=== PATIENT | female | born 2000 | race Caucasian/White ===

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

== ENCOUNTER 2021-02-17 23:11 | Emergency (ER) | payer OTHER ==
[2021-02-17 23:24] VITALS: BP 128/82; PULSE 96; RESP 18; TEMP 98.5
[2021-02-17] MEDS ORDERED: IBUPROFEN 600 MG TAB PO STA (23:51)
[2021-02-17] MEDS ORDERED: ACETAMINOPHEN TAB 325 MG TAB PO STA (23:51)
--- NOTE | 2021-02-18 00:10 | XR ---
EXAMINATION TYPE: XR foot complete RT DATE OF EXAM: 02/18/2021 COMPARISON: NONE HISTORY: Hyperextension injury. Pain TECHNIQUE: 3 views FINDINGS: Metatarsals are intact. I see no fracture nor dislocation. Joint spaces are normal. IMPRESSION: Negative right foot exam.
--- NOTE | 2021-02-18 00:13 | XR ---
EXAMINATION TYPE: XR ankle complete RT DATE OF EXAM: 02/18/2021 COMPARISON: NONE HISTORY: Hyperextension injury. Pain TECHNIQUE: 3 views FINDINGS: Ankle mortise is anatomic. I see no fracture nor dislocation. Joint spaces are normal. IMPRESSION: Normal right ankle exam.
--- NOTE | 2021-02-18 00:16 | ED ---
General Adult HPI - General Chief complaint: Extremity Injury, Lower Stated complaint: Foot Pain/Injury Time Seen by Provider: 02/17/21 23:24 Source: patient Mode of arrival: ambulatory Limitations: no limitations - History of Present Illness Initial comments: 20-year-old female patient presents to the emergency department today for evaluation of right foot and ankle pain. Patient states that she was coming down the stairs and misstepped and stumbled down approximately two steps causing a hyperextension of the foot. Patient states initially she felt okay then started to have increased pain and swelling of the night continued. States she now has pain with ambulation. Denies numbness or tingling to the foot. Denies any knee pain. Denies falling, hitting her head, or any other injuries. Denies chance of . - Related Data Home Medications Medication Instructions Recorded Confirmed Pedi Multivit No.25/Folic Acid 2 tab PO DAILY 01/15/19 01/15/19 [[place] Multivit Chew Tab] Previous Rx's Medication Instructions Recorded Ibuprofen [Motrin] 600 mg PO Q6HR PRN #30 tab 01/17/19 Ibuprofen [Motrin] 600 mg PO Q8HR PRN #30 tab 02/18/21 Allergies Allergy/AdvReac Type Severity Reaction Status Date / Time hydrocodone [From [place]] AdvReac Intermediate Nausea & Verified 02/17/21 23:21 Vomiting morphine AdvReac Intermediate Nausea & Verified 02/17/21 23:21 Vomiting Review of Systems ROS Statement: Those systems with pertinent positive or pertinent negative responses have been documented in the HPI. ROS Other: All systems not noted in ROS Statement are negative. Past Medical History Past Medical History: No Reported History History of Any Multi-Drug Resistant Organisms: None Reported Past Surgical History: Appendectomy Past Anesthesia/Blood Transfusion Reactions: No Reported Reaction Past Psychological History: Anxiety Smoking Status: Never smoker Past Alcohol Use History: None Reported Past Drug Use History: None Reported, Marijuana - Past Family History Mother Additional Family Medical History / Comment(s): miscarriages General Exam Limitations: no limitations General appearance: alert, in no apparent distress, other (This is a well- developed, well-nourished adult female patient in no acute distress. Vital signs upon presentation are temperature 98.5F, pulse 96, respirations 18, blood pressure 128/82, pulse ox 98% on room air.) Respiratory exam: Present: normal lung sounds bilaterally. Absent: respiratory distress, wheezes, rales, rhonchi, stridor Cardiovascular Exam: Present: regular rate, normal rhythm, normal heart sounds. Absent: systolic murmur, diastolic murmur, rubs, gallop, clicks GI/Abdominal exam: Present: soft, normal bowel sounds. Absent: distended, tenderness, guarding, rebound, rigid Extremities exam: Present: full ROM, tenderness (Over the right lateral aspect of the foot, right lateral ankle. Skin is otherwise pink, warm, dry. Cap refill less than 3 seconds. Pedal and posttibial pulses 2+.), normal capillary refill. Absent: pedal edema, joint swelling, calf tenderness Neurological exam: Present: alert, oriented X3, CN II-XII intact Psychiatric exam: Present: normal affect, normal mood Skin exam: Present: warm, dry, intact, normal color. Absent: rash Course Vital Signs 02/17/21 23:21 Temperature 98.5 F Pulse Rate 96 Respiratory 18 Rate Blood Pressure 128/82 O2 Sat by Pulse 98 Oximetry Medical Decision Making - Medical Decision Making 20-year-old female patient presented to the emergency department today for evaluation of right ankle and foot pain after an injury. Physical examination did reveal soft tissue swelling over the right lateral aspect of the foot on the right lateral malleolus. Neurovascular status was intact. X-rays were obtained and were negative for any acute osseous abnormality. I did discuss findings and results with the patient. We did discuss sprain as a cause for her symptoms. Discussed possible ligamentous injury. She'll be discharged with orthopedics for further evaluation for symptoms are not improved over the next 7-10 days. She was placed in an Bandar wrap and ankle stirrup splint. She is instructed to take Tylenol Motrin for pain control. Educated regarding rest, ice, elevation. Return parameters were discussed in detail. She verbalizes understanding and agrees with this plan. My attending is Dr. Virk. - Radiology Data Radiology results: report reviewed, image reviewed 3 views of the right foot are obtained. Report was reviewed in its entirety. Impression by Dr. Randolph shows negative right foot exam. 3 views of the right ankle are obtained. Report reviewed in its entirety. Impression by Dr. Randolph shows normal right ankle exam. Disposition Clinical Impression: Sprain of left foot, Left ankle sprain Disposition: HOME SELF-CARE Condition: Good Instructions (If sedation given, give patient instructions): Ankle Sprain (ED), Foot Sprain (ED) Additional Instructions: Use bandar wrap for compression and support, use ankle splint for support. Take tylenol and motrin for pain control. Rest, ice, and elevate the foot. Follow up with orthopedics if symptoms are not improved over the next 7-10 days. Return for any new, worsening, or concerning symptoms. Prescriptions: Ibuprofen [Motrin] 600 mg PO Q8HR PRN #30 tab PRN Reason: Pain Is patient prescribed a controlled substance at d/c from ED?: No Referrals: Marcelo Corley DO [Doctor of Osteopathic Medicine] - 1-2 days Time of Disposition: 00:16
== END 2021-02-18 00:31 | disposition home or self-care (01) ==
LOC: EC 23:11
DX: S93.601A Unspecified sprain of right foot, initial encounter (principal); S93.401A Sprain of unspecified ligament of right ankle, initial encounter; Z88.5 Allergy status to narcotic agent; W10.9XXA Fall (on) (from) unspecified stairs and steps, initial encounter; X50.0XXA Overexertion from strenuous movement or load, initial encounter; Y92.009 Unspecified place in unspecified non-institutional (private) residence as the place of occurrence of the external cause
CPT/HCPCS: 29515; 99283

== ENCOUNTER → 2021-10-02 | Outpatient (CLI) | payer OTHER ==
--- NOTE | 2021-10-02 16:06 | US ---
EXAMINATION TYPE: Transabdominal DATE OF EXAM: 10/02/2021 3:14 PM COMPARISON: NONE CLINICAL HISTORY: Z36 confirm dates. Unknown LMP, with recent miscarriage G 3 P 1 EXAM PERFORMED: Transvaginal (TV) and Transabdominal (TA) EXAM MEASUREMENTS: GESTATIONAL AGE / DATING Dates by Current Scan for: (7 weeks/1 days) EDC: 05/20/2022 MATERNAL ANATOMY Uterus: 7.8 x 6.4 x 4.8 Right Ovary: 3.4 x 2.8 x 2.0 Left Ovary: 2.2 x 1.5 x 1.0cm Presence of free fluid: none Presence of corpus luteal cyst: Right side measuring 1.9 x 1.8 x 1.5cm Presence of subchorionic bleed: none GESTATION / SURVEY CRL: 1.0 (7 weeks/1 days) Yolk Sac (normal less than 6mm): 4mm Heart Rate: 148 bpm Rhythm: WNL IUP: Single IUP Date of LMP: Unknown Beta HcG (if available): Not available Single live IUP IMPRESSION: 1. Single intrauterine gestation estimated at 7 weeks 1 day gestation based on crown-rump length. Car diac activity measures 148 bpm.
== END | disposition home or self-care (01) ==
LOC: RADUSWWP 14:41
PROVIDERS: ATTEND Obstetrics & Gynecology
DX: Z36.0 Encounter for antenatal screening for chromosomal anomalies (principal)
CPT/HCPCS: 76801; 76817

== ENCOUNTER 2021-12-01 11:02 | Emergency (ER) | payer OTHER ==
[2021-12-01 11:14] VITALS: TEMP 98.1
[2021-12-01 11:25] LABS: Glucose,Whole Blood 87 mg/dL (75-99)
--- NOTE | 2021-12-01 11:37 | ED ---
Dizziness HPI - General Chief Complaint: Dizziness Stated Complaint: Low blood sugar, 16 weeks Preg Time Seen by Provider: 12/01/21 11:17 Source: patient, family, RN notes reviewed Mode of arrival: ambulatory Limitations: no limitations - History of Present Illness Initial Comments: This is a 21-year-old female who presents to the emergency department for dizziness. Patient is 16 weeks . She has a history of hypoglycemia, and states that it has been significantly worse since this started. 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 Her blood sugar was 82 at that time. She drank 2 glasses of orange juice, and her sugar went up to 93. States that she feels the best when her sugar is 120-140. She has been having trouble keeping her sugar up throughout this . She sees Dr. Vela, and her next appointment is tomorrow. She did have hyperemesis gravidarum with her previous , however she has not had any problems with this during this . MD Complaint: dizziness, lightheadedness Onset/Timin -: days(s) Description: lightheadedness History of Same: Yes History of Trauma: No - Related Data Home Medications Medication Instructions Recorded Confirmed Acetaminophen Tab [Tylenol] 650 - 775 mg PO Q6HR PRN 12/01/21 12/01/21 Allergies Allergy/AdvReac Type Severity Reaction Status Date / Time hydrocodone [From [place]] AdvReac Intermediate Nausea & Verified 12/01/21 11:45 Vomiting morphine AdvReac Intermediate Nausea & Verified 12/01/21 11:45 Vomiting Review of Systems ROS Statement: Those systems with pertinent positive or pertinent negative responses have been documented in the HPI. ROS Other: All systems not noted in ROS Statement are negative. Constitutional: Denies: fever, chills ENT: Denies: ear pain, throat pain Respiratory: Denies: cough, dyspnea Cardiovascular: Denies: chest pain, palpitations Gastrointestinal: Denies: abdominal pain, nausea, vomiting, diarrhea Genitourinary: Denies: urgency, dysuria Skin: Denies: rash Neurological: Reports: other (Dizziness) Past Medical History Past Medical History: No Reported History Additional Past Medical History / Comment(s): hypogylcemic History of Any Multi-Drug Resistant Organisms: None Reported Past Surgical History: Appendectomy Past Anesthesia/Blood Transfusion Reactions: No Reported Reaction Past Psychological History: Anxiety Smoking Status: Never smoker Past Alcohol Use History: None Reported Past Drug Use History: None Reported, Marijuana - Past Family History Mother Additional Family Medical History / Comment(s): miscarriages General Exam Limitations: no limitations General appearance: alert, in no apparent distress Head exam: Present: atraumatic, normocephalic, normal inspection ENT exam: Present: normal exam, mucous membranes moist, normal external ear exam Neck exam: Present: normal inspection. Absent: tenderness, meningismus, lymphadenopathy Respiratory exam: Present: normal lung sounds bilaterally. Absent: respiratory distress, wheezes, rales, rhonchi, stridor Cardiovascular Exam: Present: regular rate, normal rhythm, normal heart sounds. Absent: systolic murmur, diastolic murmur, rubs, gallop, clicks Neurological exam: Present: alert, oriented X3, CN II-XII intact Psychiatric exam: Present: normal affect, normal mood Skin exam: Present: warm, dry, intact, normal color. Absent: rash Course Vital Signs 12/01/21 12/01/21 11:10 17:10 Temperature 98.1 F Pulse Rate 93 81 Respiratory 18 16 Rate Blood Pressure 116/81 112/74 O2 Sat by Pulse 100 100 Oximetry Medical Decision Making - Medical Decision Making This is a 21-year-old female who presents to the emergency department with dizziness. She has a glucose of 87. Patient given a sandwich and Jell-O in the emergency department. Lab work revealed an elevated white count, as suspected in . After the point of care glucose of 87, she had lab work done, revealing a glucose level of 79. The patient is not technically in the range of what is considered hypoglycemia, however she is very symptomatic. She was given a sandwich and Jell-O, and her glucose following the meal was 91. Patient is very concerned with this and requests more of a workup. TSH was within normal limits. Insulin level, proinsulin, and C-peptide ordered to evaluate for e levated insulin production. Lab work will be sent out and results will not be available today. Ultrasound obtained of the LUQ as opposed to the RUQ due to miscommunication between myself and ultrasound. After discussion with radiology, ultrasound, and myself, it was decided that it would be best to cancel this, as an insulinoma would be very hard to visualize on the ultrasound. Will plan to avoid further imaging at this time and wait for the results of the lab work, which she can discuss on follow up with her PCP. Patient is in agreement with this plan. Encouraged patient to continue with small, frequent meals throughout the day, aiming for foods that are high in protein as opposed to carbohydrates. Return precautions reviewed in depth, the patient is instructed to return to the emergency department with any new, worsening, or concerning symptoms. Patient verbalized understanding. This case was discussed in detail with the attending ED physician. Presentation, findings, and treatment plan discussed in detail as well. - Lab Data Result diagrams: 12/01/21 12:02 12/01/21 12:02 Lab Results 12/01/21 12/01/21 12/01/21 Range/Units 11:24 11:52 12:02 WBC 13.4 H (3.8-10.6) k/uL RBC 4.26 (3.80-5.40) m/uL Hgb 13.7 (11.4-16.0) gm/dL Hct 41.2 (34.0-46.0) % MCV 96.6 (80.0-100.0) fL MCH 32.2 (25.0-35.0) pg MCHC 33.3 (31.0-37.0) g/dL RDW 12.1 (11.5-15.5) % Plt Count 376 (150-450) k/uL MPV 7.1 Neutrophils % 86 % Lymphocytes % 10 % Monocytes % 3 % Eosinophils % 1 % Basophils % 0 % Neutrophils # 11.5 H (1.3-7.7) k/uL Lymphocytes # 1.3 (1.0-4.8) k/uL Monocytes # 0.4 (0-1.0) k/uL Eosinophils # 0.1 (0-0.7) k/uL Basophils # 0.0 (0-0.2) k/uL Sodium (137-145) mmol/L Potassium (3.5-5.1) mmol/L Chloride (98-107) mmol/L Carbon Dioxide (22-30) mmol/L Anion Gap mmol/L BUN (7-17) mg/dL Creatinine (0.52-1.04) mg/dL Est GFR (CKD-EPI)AfAm (>60 ml/min/1.73 sqM) Est GFR (CKD-EPI)NonAf (>60 ml/min/1.73 sqM) Glucose (74-99) mg/dL POC Glucose (mg/dL) 87 (75-99) mg/dL POC Glu Stick Inserter ID Tanvi Martines Calcium (8.4-10.2) mg/dL Total Bilirubin (0.2-1.3) mg/dL AST (14-36) U/L ALT (4-34) U/L Alkaline Phosphatase (38-126) U/L Total Protein (6.3-8.2) g/dL Albumin (3.5-5.0) g/dL TSH (0.465-4.680) mIU/L Urine Color Light Yellow Urine Appearance Cloudy H (Clear) Urine pH 5.5 (5.0-8.0) Ur Specific Od[place] 1.010 (1.001-1.035) Urine Protein Negative (Negative) Urine Glucose (UA) Negative (Negative) Urine Ketones Negative (Negative) Urine Blood Negative (Negative) Urine Nitrite Negative (Negative) Urine Bilirubin Negative (Negative) Urine Urobilinogen <2.0 (<2.0) mg/dL Ur Leukocyte Esterase Large H (Negative) Urine RBC 3 (0-5) /hpf Urine WBC 12 H (0-5) /hpf Ur Squamous Epith Cells 4 (0-4) /hpf Urine Bacteria Occasional H (None) /hpf Urine Mucus Occasional H (None) /hpf 12/01/21 12/01/21 12/01/21 Range/Units 12:02 15:54 16:33 WBC (3.8-10.6) k/uL RBC (3.80-5.40) m/uL Hgb (11.4-16.0) gm/dL Hct (34.0-46.0) % MCV (80.0-100.0) fL MCH (25.0-35.0) pg MCHC (31.0-37.0) g/dL RDW (11.5-15.5) % Plt Count (150-450) k/uL MPV Neutrophils % % Lymphocytes % % Monocytes % % Eosinophils % % Basophils % % Neutrophils # (1.3-7.7) k/uL Lymphocytes # (1.0-4.8) k/uL Monocytes # (0-1.0) k/uL Eosinophils # (0-0.7) k/uL Basophils # (0-0.2) k/uL Sodium 133 L (137-145) mmol/L Potassium 4.4 (3.5-5.1) mmol/L Chloride 103 (98-107) mmol/L Carbon Dioxide 25 (22-30) mmol/L Anion Gap 5 mmol/L BUN 9 (7-17) mg/dL Creatinine 0.51 L (0.52-1.04) mg/dL Est GFR (CKD-EPI)AfAm >90 (>60 ml/min/1.73 sqM) Est GFR (CKD-EPI)NonAf >90 (>60 ml/min/1.73 sqM) Glucose 79 (74-99) mg/dL POC Glucose (mg/dL) 91 77 (75-99) mg/dL POC Glu Stick Inserter ID Belval, Tanvi Belval, Tanvi Calcium 9.4 (8.4-10.2) mg/dL Total Bilirubin 0.3 (0.2-1.3) mg/dL AST 18 (14-36) U/L ALT 9 (4-34) U/L Alkaline Phosphatase 42 (38-126) U/L Total Protein 7.2 (6.3-8.2) g/dL Albumin 4.0 (3.5-5.0) g/dL TSH 1.630 (0.465-4.680) mIU/L Urine Color Urine Appearance (Clear) Urine pH (5.0-8.0) Ur Specific [place] (1.001-1.035) Urine Protein (Negative) Urine Glucose (UA) (Negative) Urine Ketones (Negative) Urine Blood (Negative) Urine Nitrite (Negative) Urine Bilirubin (Negative) Urine Urobilinogen (<2.0) mg/dL Ur Leukocyte Esterase (Negative) Urine RBC (0-5) /hpf Urine WBC (0-5) /hpf Ur Squamous Epith Cells (0-4) /hpf Urine Bacteria (None) /hpf Urine Mucus (None) /hpf 12/01/21 Range/Units 17:26 WBC (3.8-10.6) k/uL RBC (3.80-5.40) m/uL Hgb (11.4-16.0) gm/dL Hct (34.0-46.0) % MCV (80.0-100.0) fL MCH (25.0-35.0) pg MCHC (31.0-37.0) g/dL RDW (11.5-15.5) % Plt Count (150-450) k/uL MPV Neutrophils % % Lymphocytes % % Monocytes % % Eosinophils % % Basophils % % Neutrophils # (1.3-7.7) k/uL Lymphocytes # (1.0-4.8) k/uL Monocytes # (0-1.0) k/uL Eosinophils # (0-0.7) k/uL Basophils # (0-0.2) k/uL Sodium (137-145) mmol/L Potassium (3.5-5.1) mmol/L Chloride (98-107) mmol/L Carbon Dioxide (22-30) mmol/L Anion Gap mmol/L BUN (7-17) mg/dL Creatinine (0.52-1.04) mg/dL Est GFR (CKD-EPI)AfAm (>60 ml/min/1.73 sqM) Est GFR (CKD-EPI)NonAf (>60 ml/min/1.73 sqM) Glucose (74-99) mg/dL POC Glucose (mg/dL) 129 H (75-99) mg/dL POC Glu Stick Inserter ID Bobbi, Tanvi Calcium (8.4-10.2) mg/dL Total Bilirubin (0.2-1.3) mg/dL AST (14-36) U/L ALT (4-34) U/L Alkaline Phosphatase (38-126) U/L Total Protein (6.3-8.2) g/dL Albumin (3.5-5.0) g/dL TSH (0.465-4.680) mIU/L Urine Color Urine Appearance (Clear) Urine pH (5.0-8.0) Ur Specific [place] (1.001-1.035) Urine Protein (Negative) Urine Glucose (UA) (Negative) Urine Ketones (Negative) Urine Blood (Negative) Urine Nitrite (Negative) Urine Bilirubin (Negative) Urine Urobilinogen (<2.0) mg/dL Ur Leukocyte Esterase (Negative) Urine RBC (0-5) /hpf Urine WBC (0-5) /hpf Ur Squamous Epith Cells (0-4) /hpf Urine Bacteria (None) /hpf Urine Mucus (None) /hpf - Radiology Data Radiology results: report reviewed, image reviewed Disposition Clinical Impression: Dehydration, Lightheadedness Disposition: HOME SELF-CARE Instructions (If sedation given, give patient instructions): Non-diabetic Hypoglycemia (ED), Dizziness (ED) Additional Instructions: Return to the emergency department with any new, worsening, or concerning symptoms. Continue to eat frequently throughout the day, slowly increase the amount you eat as needed to avoid episodes of hypoglycemia. Eat more protein and limit carbohydrate consumption. Follow up with your theater technician as scheduled to discuss symptoms. Follow up with your primary care provider in 1-2 days. Follow up on the rest of blood work regarding the insulin levels with your primary care provider. Is patient prescribed a controlled substance at d/c from ED?: No Referrals: None,Stated [Primary Care Provider] - 1-2 days
[2021-12-01 12:17] LABS: Basophils % (A) 0 %; Eosinophils # (A) 0.1 k/uL (0-0.7); Eosinophils % (A) 1 %; HCT 41.2 % (34.0-46.0); HGB 13.7 gm/dL (11.4-16.0); Lymphocytes # (A) 1.3 k/uL (1.0-4.8); Lymphocytes % (A) 10 %; MCH 32.2 pg (25.0-35.0); MCHC 33.3 g/dL (31.0-37.0); MCV 96.6 fL (80.0-100.0); Mean Platelet Volume 7.1; Monocytes # (A) 0.4 k/uL (0-1.0); Monocytes % (A) 3 %; Neutrophils # (A) 11.5 k/uL (1.3-7.7); Neutrophils % (A) 86 %; Platelet Count 376 k/uL (150-450); RBC 4.26 m/uL (3.80-5.40); RDW 12.1 % (11.5-15.5); WBC 13.4 k/uL (3.8-10.6)
[2021-12-01 12:32] LABS: ALT 9 U/L (4-34); AST 18 U/L (14-36); African American GFR (CKD) >90 (>60 ml/min/1.73 sqM); Alkaline Phosphatase 42 U/L (38-126); Anion Gap 5 mmol/L; Blood Urea Nitrogen 9 mg/dL (7-17); Calcium 9.4 mg/dL (8.4-10.2); Carbon Dioxide 25 mmol/L (22-30); Chloride 103 mmol/L (98-107); Glucose 79 mg/dL (74-99); Non-African American GFR(CKD) >90 (>60 ml/min/1.73 sqM); Potassium 4.4 mmol/L (3.5-5.1); Sodium 133 mmol/L (137-145); Total Bilirubin 0.3 mg/dL (0.2-1.3); Total Protein 7.2 g/dL (6.3-8.2)
[2021-12-01 12:34] LABS: Appearance,Urine Cloudy (Clear); Bacteria,Urine Occasional /hpf; Bilirubin,Urine Negative (Negative); Blood,Urine Negative (Negative); Color,Urine Light Yellow; Glucose,Urine (UA) Negative (Negative); Ketones,Urine Negative (Negative); Leukocyte Esterase,Urine Large (Negative); Mucus,Urine Occasional /hpf; Nitrite,Urine Negative (Negative); PH, Urine 5.5 (5.0-8.0); Protein,Urine Negative (Negative); RBC,Urine 3 /hpf (0-5); Squamous Epithelial Cell,Urine 4 /hpf (0-4); Urobilinogen,Urine <2.0 mg/dL (<2.0); WBC,Urine 12 /hpf (0-5)
--- NOTE | 2021-12-01 14:44 | US ---
EXAMINATION TYPE: US abdomen limited DATE OF EXAM: 12/01/2021 COMPARISON: NONE CLINICAL HISTORY: Hypoglycemia, dizziness. EXAM MEASUREMENTS: Spleen: 9.9 cm Left Kidney: 10.8 x 4.8 x 4.8 cm 1. Spleen: wnl 2. Left Kidney: wnl There is no evident ascites. No hydronephrosis or nephrolithiasis. IMPRESSION: No abnormality evident to account for patient's symptoms, limited exam
[2021-12-01 15:56] LABS: Glucose,Whole Blood 91 mg/dL (75-99)
[2021-12-01 16:36] LABS: Glucose,Whole Blood 77 mg/dL (75-99)
[2021-12-01 17:12] VITALS: BP 112/74; PULSE 81; RESP 16
[2021-12-01 17:28] LABS: Glucose,Whole Blood 129 mg/dL (75-99)
== END 2021-12-01 17:30 | disposition home or self-care (01) ==
LOC: EC 11:02
DX: O99.282 Endocrine, nutritional and metabolic diseases complicating pregnancy, second trimester (principal); O26.812 Pregnancy related exhaustion and fatigue, second trimester; Z88.8 Allergy status to other drugs, medicaments and biological substances; Z88.6 Allergy status to analgesic agent; Z3A.16 16 weeks gestation of pregnancy
CPT/HCPCS: 36415; 76705; 80053; 81001; 83525; 84206; 84443; 84681; 85025; 87086; 99284

== ENCOUNTER 2022-04-16 16:20 | Outpatient (CLI) | payer OTHER ==
[2022-04-16 17:24] VITALS: BP 129/81; PULSE 98; RESP 16; TEMP 97.3
--- NOTE | 2022-04-17 06:11 | P.MSEPDOC ---
Presenting Problems - Arrival Data Date of Arrival on Unit: 04/16/22 Time of Arrival on Unit: 16:20 Mode of Transport: Ambulatory - Complaint OB-Reason for Admission/Chief Complaint: Rule Out PROM Comment: pt states she thinks she has been leaking fluid since 1500 yesterday, cat I fhts with occasional contractions noted, amnisure negative Medical History - Information : 3 Para: 1 Term: 1 : 0 Abortions: Spontaneous or Elective: 1 Number of Living Children: 1 - Gestational Age Gestational Age by MONICA (wks/days): 35 Weeks and 4 Days Review of Systems - Review of Systems Constitutional: No problems Breast: No problems ENT: No problems Cardiovascular: No problems Respiratory: No problems Gastrointestinal: No problems Genitourinary: No problems Musculoskeletal: No problems Neurological: No problems Skin: No problems Vital Signs - Temperature Temperature: 97.3 F Temperature Source: Temporal Artery Scan - Pulse Right Brachial Pulse Rate: 98 Pulse Assessment Method: Automatic Cuff - Respirations Respiratory Rate: 16 Oxygen Delivery Method: Room Air O2 Sat by Pulse Oximetry: 97 - Blood Pressure Right Arm Blood Pressure: 129/81 Blood Pressure Mean: 97 Blood Pressure Source: Automatic Cuff Medical Screen Scoring - Cervical Exam Dilation (cm): 0.5 Effacement (%): 50 Station: -2 Membranes: Intact - Uterine Contractions Intensity: Mild Resting: Soft to palpation - Assessment - Baby A Baseline FHR: 130 Heart Rate - NICHD Category: Category I (Normal) Physician Notification - Physician Notified Physician Notified Date: 04/16/22 Physician Notified Time: 17:07 Physician: Justo Cotton Maternal Triage Index - Prompt/Priority 3 Prompt Priority 3: Yes Criteria Met for Priority 3: amnisure result negative Disposition - Disposition OB Disposition: Discharge to home, Written follow up instructions reviewed Discharge Date: 04/16/22 Discharge Time: 17:20 I agree with the RN Medical Screening Exam: Yes Case reviewed; plan agreed upon as documented in EMR&OBIX.: Yes Diagnosis: FALSE LABOR BEFORE 37 COMPLETED WEEKS OF GEST, THIRD TRI
== END 2022-04-16 17:20 | disposition home or self-care (01) ==
LOC: FBPOP 16:20
PROVIDERS: ATTEND Obstetrics & Gynecology
DX: O47.03 False labor before 37 completed weeks of gestation, third trimester (principal); Z3A.35 35 weeks gestation of pregnancy
CPT/HCPCS: 59025; 84112; G0463; 99213

== ENCOUNTER 2022-05-05 13:05 | Outpatient (CLI) | payer OTHER ==
[2022-05-05 15:25] VITALS: BP 124/84; PULSE 97; RESP 16; TEMP 96.9
--- NOTE | 2022-05-07 07:50 | P.MSEPDOC ---
Presenting Problems - Arrival Data Date of Arrival on Unit: 05/05/22 Time of Arrival on Unit: 13:05 Mode of Transport: Ambulatory - Complaint OB-Reason for Admission/Chief Complaint: Possible Onset of Labor Medical History - Information : 2 Para: 1 Term: 1 : 0 Abortions: Spontaneous or Elective: 0 Number of Living Children: 1 - Gestational Age Gestational Age by MONICA (wks/days): 38 Weeks and 2 Days Review of Systems - Review of Systems Constitutional: No problems Breast: No problems ENT: No problems Cardiovascular: No problems Respiratory: No problems Gastrointestinal: No problems Genitourinary: No problems Musculoskeletal: No problems Neurological: No problems Skin: No problems Vital Signs - Temperature Temperature: 96.9 F Temperature Source: Temporal Artery Scan - Pulse Right Sitting Pulse Rate: 97 Pulse Assessment Method: Automatic Cuff - Respirations Respiratory Rate: 16 Oxygen Delivery Method: Room Air - Blood Pressure Right Arm Blood Pressure: 124/84 Blood Pressure Mean: 97 Blood Pressure Source: Automatic Cuff Medical Screen Scoring - Cervical Exam Dilation (cm): 2.5 Effacement (%): 80 Station: -2 Membranes: Intact - Uterine Contractions Frequency From (mins): 4 Frequency To (mins): 6 Duration From (seconds): 60 Duration To (seconds): 120 Intensity: Mild Resting: Soft to palpation - Assessment - Baby A Baseline FHR: 125 Heart Rate - NICHD Category: Category I (Normal) NST: Reactive Physician Notification - Physician Notified Physician Notified Date: 05/05/22 Physician Notified Time: 15:12 Physician: Malina Vela New Order Received: Yes (d/c home) Maternal Triage Index - Non-Urgent/Priority 4 Non-Urgent Priority 4: Yes Criteria Met for Priority 4: reactive nst, contractions every 4-6 minutes, vag exam no change Disposition - Disposition OB Disposition: Discharge to home Discharge Date: 05/05/22 Discharge Time: 15:18 I agree with the RN Medical Screening Exam: Yes Case reviewed; plan agreed upon as documented in EMR&OBIX.: Yes Diagnosis: FALSE LABOR AT OR AFTER 37 COMPLETED WEEKS OF GESTATION
== END 2022-05-05 15:18 | disposition home or self-care (01) ==
LOC: FBPOP 13:05
PROVIDERS: ATTEND Obstetrics & Gynecology
DX: O47.1 False labor at or after 37 completed weeks of gestation (principal); Z3A.38 38 weeks gestation of pregnancy
CPT/HCPCS: 59025; G0463; 99213

== ENCOUNTER 2022-05-06 11:47 | Outpatient (CLI) | payer OTHER ==
[2022-05-06 13:19] VITALS: BP 123/81; PULSE 93; RESP 16; TEMP 96.6
--- NOTE | 2022-05-07 07:51 | P.MSEPDOC ---
Presenting Problems - Arrival Data Date of Arrival on Unit: 05/06/22 Time of Arrival on Unit: 11:47 Mode of Transport: Ambulatory - Complaint OB-Reason for Admission/Chief Complaint: Possible Onset of Labor Medical History - Information : 2 Para: 1 Term: 1 : 0 Abortions: Spontaneous or Elective: 0 Number of Living Children: 1 - Gestational Age Gestational Age by MONICA (wks/days): 38 Weeks and 3 Days Review of Systems - Review of Systems Constitutional: No problems Breast: No problems ENT: No problems Cardiovascular: No problems Respiratory: No problems Gastrointestinal: No problems Genitourinary: No problems Musculoskeletal: No problems Neurological: No problems Skin: No problems Vital Signs - Temperature Temperature: 96.6 F Temperature Source: Temporal Artery Scan - Pulse Right Sitting Pulse Rate: 93 Pulse Assessment Method: Automatic Cuff - Respirations Respiratory Rate: 16 Oxygen Delivery Method: Room Air - Blood Pressure Right Arm Blood Pressure: 123/81 Blood Pressure Mean: 95 Blood Pressure Source: Automatic Cuff Medical Screen Scoring - Cervical Exam Dilation (cm): 3 Effacement (%): 80 Station: -2 Membranes: Intact - Uterine Contractions Frequency From (mins): 12 Frequency To (mins): 15 Intensity: Mild Resting: Soft to palpation - Assessment - Baby A Baseline FHR: 140 Heart Rate - NICHD Category: Category I (Normal) NST: Reactive Physician Notification - Physician Notified Physician Notified Date: 05/06/22 Physician Notified Time: 12:14 Physician: Neema Cain Order Received: Yes (d/c home) Maternal Triage Index - Non-Urgent/Priority 4 Non-Urgent Priority 4: Yes Criteria Met for Priority 4: contractions every 12-15 minutes, reactive nst, no change in cervix after 1 hour Disposition - Disposition OB Disposition: Discharge to home Discharge Date: 05/06/22 Discharge Time: 13:10 I agree with the RN Medical Screening Exam: Yes Case reviewed; plan agreed upon as documented in EMR&OBIX.: Yes Diagnosis: PRIMARY INADEQUATE CONTRACTIONS
== END 2022-05-06 13:10 | disposition home or self-care (01) ==
LOC: FBPOP 11:47
PROVIDERS: ATTEND Obstetrics & Gynecology
DX: O47.1 False labor at or after 37 completed weeks of gestation (principal); Z3A.38 38 weeks gestation of pregnancy
CPT/HCPCS: 59025; G0463; 99213

== ENCOUNTER 2022-05-07 00:12 | Inpatient (IN) | payer OTHER ==
[2022-05-07] MEDS ORDERED: LIDOCAINE 0.5% (PF) 5 MG/ML (50 ML SDV) SQ PRN (00:40)
[2022-05-07] MEDS ORDERED: TERBUTALINE 1 MG/ML VIAL SQ PRN (00:40)
[2022-05-07] MEDS ORDERED: METHYLERGONOVINE 0.2 MG/ML 1 ML AMP IM PRN (00:40)
[2022-05-07] MEDS ORDERED: OXYTOCIN 10 UNIT/ML 1 ML VIAL IM PRN (00:40)
[2022-05-07] MEDS ORDERED: CARBOPROST TROMETHAMINE 250 MCG/ML 1 ML AMP IM PRN (00:40)
[2022-05-07 01:00] LABS: Basophils # (A) 0.1 k/uL (0-0.2); Basophils % (A) 0 %; Eosinophils # (A) 0.1 k/uL (0-0.7); Eosinophils % (A) 1 %; HCT 39.8 % (34.0-46.0); HGB 12.9 gm/dL (11.4-16.0); Lymphocytes # (A) 2.5 k/uL (1.0-4.8); Lymphocytes % (A) 14 %; MCH 29.9 pg (25.0-35.0); MCHC 32.5 g/dL (31.0-37.0); MCV 92.1 fL (80.0-100.0); Mean Platelet Volume 8.1; Monocytes # (A) 0.8 k/uL (0-1.0); Monocytes % (A) 4 %; Neutrophils # (A) 13.6 k/uL (1.3-7.7); Neutrophils % (A) 78 %; Platelet Count 334 k/uL (150-450); RBC 4.32 m/uL (3.80-5.40); RDW 13.8 % (11.5-15.5); WBC 17.4 k/uL (3.8-10.6)
[2022-05-07] MEDS ORDERED: SODIUM CHLORIDE 0.9% 100 ML BAG ONE (01:05)
[2022-05-07] MEDS ORDERED: fentaNYL (PF) 50 MCG/ML 5 ML AMP ONE (01:05)
[2022-05-07] MEDS ORDERED: BUPIVACAINE (PF) 0.25% 30 ML VIAL ONE (01:05)
[2022-05-07] MEDS: LACTATED RINGERS 1,000 ML IV SCH ×2 (01:13→01:14)
--- NOTE | 2022-05-07 01:34 | P.HPOB ---
History of Present Illness H&P Date: 05/07/22 Chief Complaint: Contractions This is a 21-year-old female 3 para 1 with confinement of 05/17/2022, estimated gestational age of 38-4/7 weeks, who presents to labor and delivery with complaints of contractions that began a couple days ago that have become stronger since approximately 8 PM last night. She denies any rupture of membranes. course has been uncomplicated and has been with Dr. Vela. labs: Group B streptococcus-negative One hour Glucola-138, three-hour Glucola-within normal limits Hepatitis B surface antigen-negative RPR-nonreactive Rubella-immune Blood type-A- Antibody screen--positive for anti-D but RhoGAM was given prior to that HIV-nonreactive Hemoglobin-13.7 Random glucose-71 Pap [id number] squamous intraepithelial lesion GC/gonorrhea/Trichomonas-negative Obstetrical history: . History of 1 vaginal delivery at 37 weeks with no complications. History of 1 miscarriage. Gynecologic history: No history of sexual transmitted diseases Social history: She is single and engaged. She works as an aide at [employer]. Review of Systems Constitutional: Denies chills, Denies fever Eyes: denies blurred vision, denies pain Ears, nose, mouth and throat: Denies headache, Denies sore throat Cardiovascular: Denies chest pain, Denies shortness of breath Respiratory: Denies cough Gastrointestinal: Reports abdominal pain (Contractions) Genitourinary: Reports pelvic pain, Reports Musculoskeletal: Reports low back pain Integumentary: Denies pruritus, Denies rash Neurological: Denies numbness, Denies weakness Psychiatric: Reports anxiety, Denies depression Past Medical History Past Medical History: No Reported History Additional Past Medical History / Comment(s): hypogylcemic History of Any Multi-Drug Resistant Organisms: None Reported Past Surgical History: Appendectomy Past Anesthesia/Blood Transfusion Reactions: No Reported Reaction Past Psychological History: Anxiety Smoking Status: Never smoker Past Alcohol Use History: None Reported Past Drug Use History: None Reported, Marijuana Additional Drug Use History / Comment(s): stopped smoking tobacco and marijuana when discovered. - Past Family History Mother Family Medical History: No Reported History Additional Family Medical History / Comment(s): miscarriages Medications and Allergies Home Medications Medication Instructions Recorded Confirmed Type Acetaminophen Tab [Tylenol] 650 mg PO Q6HR PRN 12/01/21 05/07/22 History Vit No.179/Iron/Folic 1 tablet PO DAILY 04/16/22 05/07/22 History [ Tablet] Allergies Allergy/AdvReac Type Severity Reaction Status Date / Time hydrocodone [From [place]] AdvReac Intermediate Nausea & Verified 05/07/22 00:20 Vomiting morphine AdvReac Intermediate Nausea & Verified 05/07/22 00:20 Vomiting Exam Osteopathic Statement: *. No significant issues noted on an osteopathic structural exam other than those noted in the History and Physical/Consult. Vital Signs Temp Pulse Resp BP 05/07/22 00:41 97.4 F L 100 18 121/73 05/07/22 00:19 97.4 F L 100 16 121/73 Intake and Output 05/06/22 05/06/22 05/07/22 14:59 22:59 06:59 Other: Weight 67.132 kg HEENT: Within normal limits Heart: Regular rate and rhythm Lungs: Clear to auscultation bilaterally Abdomen: Cervix: Initially was 6 cm/80%/-2 station, currently 8 cm/100%/-1 station, artificial rupture membranes with clear fluid heart tones: Category 1 Contractions: Every 2 minutes Extremities: Negative Homans Results Result Diagrams: 05/07/22 00:45 Abnormal Lab Results - Last 24 Hours (Table) 05/07/22 Range/Units 00:45 WBC 17.4 H (3.8-10.6) k/uL Neutrophils # 13.6 H (1.3-7.7) k/uL Assessment and Plan (1) 38 weeks gestation of Current Visit: Yes Status: Acute Code(s): Z3A.38 - 38 WEEKS GESTATION OF SNOMED Code(s): 51353561 Plan: Admission for active labor. Epidural anesthesia. Expectant management.
--- NOTE | 2022-05-07 02:15 | P.PROBDLV ---
Vaginal Delivery Note - . Vaginal Delivery Note: The patient progressed fairly rapidly to complete dilation after epidural anesthesia and artificial rupture membranes with clear fluid noted. She began pushing in fairly rapidly brought 's head to a crown. With one further push, the 's head delivered across the perineum followed by the anterior shoulder. Nose and mouth were bulb suctioned at the perineum. With one further push, the remainder the easily delivered and was placed on mother's abdo men. Cord was clamped and cut and was taken to warmer for evaluation. A viable male infant is noted with scores of 8 at 1 minute and 9 at 5 minutes and weight of 5 lbs. 11 oz. Placenta delivered shortly thereafter, intact, with a three-vessel cord. Uterus contracted well after oxytocin was given and uterine massage was carried out. Inspection of the perineum revealed no perineal lacerations. Her bladder was drained with a straight cath. Estimated blood loss was approximately 100 mL's. Both mother and are in stable condition.
[2022-05-07] MEDS ORDERED: diphenhydrAMINE 50 MG/ML 1 ML VIAL IVP PRN ×2 (02:19)
[2022-05-07] MEDS ORDERED: ACETAMINOPHEN TAB 325 MG TAB PO PRN (02:19)
[2022-05-07] MEDS ORDERED: LANOLIN CREAM 5 GM TUBE TOPICAL PRN (02:19)
[2022-05-07] MEDS ORDERED: SIMETHICONE 80 MG CHEWABLE PO PRN (02:19)
[2022-05-07] MEDS ORDERED: diphenhydrAMINE 25 MG CAP PO PRN (02:19)
[2022-05-07] MEDS ORDERED: OXYTOCIN 30 UNITS/500 ML NS 30 UNIT in SALINE 1 500ML.BAG IV SCH (02:19)
[2022-05-07] MEDS ORDERED: diphenhydrAMINE 50 MG CAP PO PRN (02:19)
[2022-05-07] MEDS ORDERED: HYDROCORTISONE 2.5% RECTAL CREAM 30 GM TUBE RECTAL PRN (02:19)
[2022-05-07] MEDS ORDERED: ZOLPIDEM 5 MG TAB PO PRN (02:19)
[2022-05-07] MEDS ORDERED: BENZOCAINE/MENTHOL SPRAY 1 GM/SPRAY AEROSOL TOPICAL PRN (02:19)
[2022-05-07] MEDS: IBUPROFEN 600 MG TAB PO PRN ×3 (06:18→20:06)
--- NOTE | 2022-05-07 08:45 | P.MSEPDOC ---
Presenting Problems - Arrival Data Date of Arrival on Unit: 05/07/22 Time of Arrival on Unit: 00:30 Mode of Transport: Wheelchair - Complaint OB-Reason for Admission/Chief Complaint: Possible Onset of Labor Comment: Patient presents for contractions that started yesterday, States they started to get stronger and closer together at around 1999 this evening, Denies leaking of fluid or vaginal bleeding Medical History - Information : 2 Para: 1 Term: 1 : 0 Abortions: Spontaneous or Elective: 0 Number of Living Children: 1 - Gestational Age Gestational Age by MONICA (wks/days): 38 Weeks and 4 Days Review of Systems - Review of Systems Constitutional: No problems Breast: No problems ENT: No problems Cardiovascular: No problems Respiratory: No problems Gastrointestinal: No problems Genitourinary: No problems Musculoskeletal: No problems Neurological: No problems Skin: No problems Vital Signs - Temperature Temperature: 98.3 F Temperature Source: Oral - Pulse Pulse Oximetery Pulse Rate: 70 Pulse Assessment Method: Automatic Cuff - Respirations Respiratory Rate: 16 Oxygen Delivery Method: Room Air - Blood Pressure Sitting Blood Pressure: 112/71 Blood Pressure Mean: 84 Blood Pressure Source: Automatic Cuff Medical Screen Scoring - Cervical Exam Dilation (cm): 6 Effacement (%): 70 Station: -2 Membranes: Intact - Uterine Contractions Frequency From (mins): 1 Frequency To (mins): 3 Duration From (seconds): 60 Duration To (seconds): 100 Intensity: Strong Resting: Soft to palpation - Assessment - Baby A Baseline FHR: 130 Heart Rate - NICHD Category: Category I (Normal) NST: Reactive Physician Notification - Physician Notified Physician Notified Date: 05/07/22 Physician Notified Time: 00:30 Physician: Neema Cain New Order Received: Yes - Notification Comment Comment: Orders given to admit patient for labor, patient may have epidural if and when needed. Maternal Triage Index - Urgent/Priority 2 Urgent Priority 2: Yes Provider Notified: Neema Cain Provider Notified Time: 00:30 Criteria Met for Priority 2: 38 4/7 presents for regular contractions since about 1999. Denies leaking of fluid or vaginal bleeding Disposition - Disposition OB Disposition: Admit, LDRP Suite Transferred to:: Suite 3 I agree with the RN Medical Screening Exam: Yes Case reviewed; plan agreed upon as documented in EMR&OBIX.: Yes Diagnosis: ENCOUNTER FOR FULL-TERM UNCOMPLICATED DELIVERY
[2022-05-07] MEDS: SENNOSIDES-DOCUSATE SODIUM 1 EACH TAB PO SCH ×2 (12:20→20:06)
[2022-05-07] MEDS: PRENATAL VIT-IRON-FOLIC ACID 1 EACH TABLET PO SCH (12:20)
[2022-05-08] MEDS: IBUPROFEN 600 MG TAB PO PRN (02:38)
[2022-05-08] MEDS: SENNOSIDES-DOCUSATE SODIUM 1 EACH TAB PO SCH (07:27)
[2022-05-08] MEDS: PRENATAL VIT-IRON-FOLIC ACID 1 EACH TABLET PO SCH (07:27)
[2022-05-08 07:32] VITALS: BP 111/73; PULSE 80; RESP 18; TEMP 98.4
--- NOTE | 2022-05-08 07:38 | P.DS ---
Providers Date of admission: 05/07/22 00:26 Expected date of discharge: 05/08/22 Attending physician: Malina Vela Primary care physician: Stated None - Discharge Diagnosis(es) (1) Normal vaginal delivery Current Visit: No Status: Acute Hospital Course: Patient presented in active labor. She underwent a normal vaginal delivery. Her course was uncomplicated. She denies nausea, vomiting, chest pain, shortness of breath or calf pain. Patient will be discharged home day #1 in stable condition to follow-up with me in 6 weeks. Plan - Discharge Summary New Discharge Prescriptions: New Ibuprofen [Motrin] 600 mg PO Q6HR PRN #30 tab PRN Reason: Mild Pain (Scale 1 To 3) No Action Acetaminophen Tab [Tylenol] 650 mg PO Q6HR PRN PRN Reason: Pain Or Fever > 100.5 Vit No.179/Iron/Folic [ Tablet] 1 tablet PO DAILY Discharge Medication List Acetaminophen Tab [Tylenol] 650 mg PO Q6HR PRN 12/01/21 [History] Vit No.179/Iron/Folic [ Tablet] 1 tablet PO DAILY 04/16/22 [History] Ibuprofen [Motrin] 600 mg PO Q6HR PRN #30 tab 05/08/22 [Rx] Follow up Appointment(s)/Referral(s): Malina Vela DO [Doctor of Osteopathic Medicine] - 06/25/22 11:15 am Discharge Disposition: HOME SELF-CARE
[2022-05-08 07:56] LABS: Basophils % (A) 0 %; Eosinophils # (A) 0.1 k/uL (0-0.7); Eosinophils % (A) 1 %; HCT 36.7 % (34.0-46.0); HGB 11.7 gm/dL (11.4-16.0); Lymphocytes # (A) 2.7 k/uL (1.0-4.8); Lymphocytes % (A) 19 %; MCH 29.6 pg (25.0-35.0); MCHC 31.9 g/dL (31.0-37.0); MCV 92.8 fL (80.0-100.0); Mean Platelet Volume 8.2; Monocytes # (A) 0.7 k/uL (0-1.0); Monocytes % (A) 5 %; Neutrophils # (A) 10.8 k/uL (1.3-7.7); Neutrophils % (A) 74 %; Platelet Count 277 k/uL (150-450); RBC 3.96 m/uL (3.80-5.40); RDW 13.7 % (11.5-15.5); WBC 14.5 k/uL (3.8-10.6)
== END 2022-05-08 12:25 | disposition home or self-care (01) | DRG 807 ==
LOC: FBPOP 00:12 → 4FBP 00:26
PROVIDERS: ADMIT Obstetrics & Gynecology; ATTEND Obstetrics & Gynecology
PROC: 10E0XZZ Delivery of Products of Conception, External Approach (ICD-10-PCS; principal; 2022-05-07)
PROC: 10907ZC Drainage of Amniotic Fluid, Therapeutic from Products of Conception, Via Natural or Artificial Opening (ICD-10-PCS; 2022-05-07)
PROC: 4A0HXCZ Measurement of Products of Conception, Cardiac Rate, External Approach (ICD-10-PCS; 2022-05-07)
PROC: 3E033VJ Introduction of Other Hormone into Peripheral Vein, Percutaneous Approach (ICD-10-PCS; 2022-05-07)
DX: O62.3 Precipitate labor (principal); Z37.0 Single live birth; F41.9 Anxiety disorder, unspecified; O99.344 Other mental disorders complicating childbirth; Z3A.38 38 weeks gestation of pregnancy; Z87.891 Personal history of nicotine dependence; Z88.5 Allergy status to narcotic agent; Z86.59 Personal history of other mental and behavioral disorders
CPT/HCPCS: 59025; 85025; 86850; 86870; 86880; 86900; 86901; 99213

== ENCOUNTER → 2023-03-10 | Outpatient (CLI) | payer OTHER ==
--- NOTE | 2023-03-10 14:19 | XR ---
EXAMINATION TYPE: XR knee complete RT DATE OF EXAM: 03/10/2023 COMPARISON: NONE HISTORY: Pain, lifting injury TECHNIQUE: Frontal, lateral and oblique images of the right knee are obtained. FINDINGS: There is no acute fracture/dislocation evident. The joint spaces appear within normal calvin its. The overlying soft tissue appears unremarkable. IMPRESSION: There is no acute fracture or dislocation seen.
== END | disposition home or self-care (01) ==
LOC: RADXRMAIN 13:57
PROVIDERS: ATTEND Emergency Medicine
DX: S83.91XA Sprain of unspecified site of right knee, initial encounter (principal)

== ENCOUNTER 2023-12-03 19:40 | Emergency (ER) | payer OTHER ==
[2023-12-03] MEDS: IBUPROFEN 800 MG TAB PO STA (20:20)
[2023-12-03] MEDS: ACETAMINOPHEN TAB 325 MG TAB PO STA (20:20)
--- NOTE | 2023-12-03 20:34 | ED ---
Upper Extremity HPI - General Chief Complaint: Extremity Injury, Upper Stated Complaint: left wrist pain Time Seen by Provider: 12/03/23 19:59 Source: patient Mode of arrival: ambulatory Limitations: physical limitation - History of Present Illness Initial Comments: 23-year-old female presenting with chief complaint of left wrist injury. Patient has history of hypoglycemia and states that she had an episode today. This caused her to pass out. When she came to she had wrist pain. She has no headache, neck pain, vision or hearing changes, nausea, vomiting, dizziness, numbness, tingling, weakness. She has pain and swelling to the left wrist. - Related Data Home Medications Medication Instructions Recorded Confirmed Acetaminophen Tab [Tylenol] 650 mg PO Q6HR PRN 12/01/21 05/07/22 Vit No.179/Iron/Folic 1 tablet PO DAILY 04/16/22 05/07/22 [ Tablet] Previous Rx's Medication Instructions Recorded Ibuprofen [Motrin] 600 mg PO Q6HR PRN #30 tab 05/08/22 Allergies Allergy/AdvReac Type Severity Reaction Status Date / Time morphine AdvReac Nausea & Verified 12/03/23 20:10 Vomiting Review of Systems ROS Statement: Those systems with pertinent positive or pertinent negative responses have been documented in the HPI. ROS Other: All systems not noted in ROS Statement are negative. Past Medical History Past Medical History: No Reported History Additional Past Medical History / Comment(s): hypogylcemic History of Any Multi-Drug Resistant Organisms: None Reported Past Surgical History: Appendectomy Past Anesthesia/Blood Transfusion Reactions: No Reported Reaction Past Psychological History: Anxiety Smoking Status: Never smoker Past Alcohol Use History: None Reported Past Drug Use History: None Reported, Marijuana - Past Family History Mother Family Medical History: No Reported History Additional Family Medical History / Comment(s): miscarriages General Exam General appearance: alert, in no apparent distress Head exam: Present: atraumatic, normocephalic Eye exam: Present: normal appearance, PERRL, EOMI Neck exam: Present: normal inspection Respiratory exam: Absent: respiratory distress Cardiovascular Exam: Present: regular rate Left Hand Wrist exam: Present: tenderness, swelling, ecchymosis. Absent: full ROM Neurological exam: Present: alert, oriented X3 Psychiatric exam: Present: normal affect, normal mood Skin exam: Present: warm, dry Course Vital Signs 12/03/23 12/04/23 20:07 00:34 Temperature 98.2 F 98.0 F Pulse Rate 79 82 Respiratory 16 18 Rate Blood Pressure 124/84 114/74 O2 Sat by Pulse 100 100 Oximetry Procedures - Orthopedic Splinting/Casting Injury #1 Side: left Upper Extremity Injury Location: wrist Upper Extremity Immobilizer: volar splint Medical Decision Making - Medical Decision Making Was pt. sent in by a medical professional or institution (, PA, [facility], urgent care, hospital, or [facility]...) When possible be specific @ -No Did you speak to anyone other than the patient for history (EMS, parent, family, police, friend...)? What history was obtained from this source @ -No Did you review nursing and triage notes (agree or disagree)? Why? @ -I reviewed and agree with nursing and triage notes Were old charts reviewed (outside hosp., previous admission, EMS record, old EKG, old radiological studies, urgent care reports/EKG's, [facility] records)? Report findings @ -No old charts were reviewed Differential Diagnosis (chest pain, altered mental status, abdominal pain women, abdominal pain men, vaginal bleeding, weakness, fever, dyspnea, syncope, headache, dizziness, GI bleed, back pain, seizure, CVA, palpatations, mental health, musculoskeletal)? @ -Differential Musculoskeletal Muscular strain, contusion, ligament sprain, fracture, arthritis, septic arthritis, bursitis, cellulitis, muscle spasm, nerve compression, DVT, arterial occlusion, herpes zoster, electrolyte abnormality, tumor.... This is not meant to be in all inclusive list EKG interpreted by me (3pts min.). @ -As above X-rays interpreted by me (1pt min.). @ -X-ray shows no evidence of fracture or dislocation CT interpreted by me (1pt min.). @ -None done U/S interpreted by me (1pt. min.). @ -None done What testing was considered but not performed or refused? (CT, X-rays, U/S, labs)? Why? @ -None What meds were considered but not given or refused? Why? @ -None Did you discuss the management of the patient with other professionals (professionals i.e. , PA, [facility], lab, RT, psych nurse, manager social work, manager baby, teacher, financial aids officer, manager of case)? Give summary @ -No Was smoking cessation discussed for >3mins.? @ -No Was critical care preformed (if so, how long)? @ -No Were there social determinants of health that impacted care today? How? (Homelessness, low income, unemployed, alcoholism, drug addiction, transportation, low edu. Level, literacy, decrease access to med. care, fpc, rehab)? @ -No Was there de-escalation of care discussed even if they declined (Discuss DNR or withdrawal of care, Hospice)? DNR status @ -No What co-morbidities impacted this encounter? (DM, HTN, Smoking, COPD, CAD, Cancer, CVA, ARF, Chemo, Hep., AIDS, mental health diagnosis, sleep apnea, morbid obesity)? @ -None Was patient admitted / discharged? Hospital course, mention meds given and route, prescriptions, significant lab abnormalities, going to OR and other pertinent info. @ -23-year-old female presenting with chief complaint of left wrist injury. X- ray report is pending, but shows no fracture or dislocation. Shared decision making utilized, patient is placed in a volar splint. Discharged home. Follow- up with PCP. Report back to ER with any new or worsening symptoms. Discussed return parameters and answered all questions. Patient conveyed verbal understanding and agreed to the plan. I discussed this case in detail with my attending Dr. Bang Undiagnosed new problem with uncertain prognosis? @ -No Drug Therapy requiring intensive monitoring for toxicity (Heparin, Nitro, Insulin, Cardizem)? @ -No Were any procedures done? @ -Volar splint applied Diagnosis/symptom? @ -Wrist sprain Acute, or Chronic, or Acute on Chronic? @ -Acute Uncomplicated (without systemic symptoms) or Complicated (systemic symptoms)? @ -Uncomplicated Side effects of treatment? @ -No Exacerbation, Progression, or Severe Exacerbation? @ -No Poses a threat to life or bodily function? How? (Chest pain, [place], [place], pneumonia, PE, COPD, DKA, ARF, appy, cholecystitis, CVA, Diverticulitis, Homicidal, Suicidal, threat to staff... and all critical care pts) @ -No Disposition Clinical Impression: Wrist sprain Disposition: HOME SELF-CARE Condition: Good Instructions (If sedation given, give patient instructions): Wrist Sprain (ED) Additional Instructions: Follow-up with PCP. Report back to ER with any new or worsening symptoms. Is patient prescribed a controlled substance at d/c from ED?: No Referrals: None,Stated [Primary Care Provider] - 1-2 days Time of Disposition: 00:10
--- NOTE | 2023-12-04 00:21 | XR ---
EXAMINATION TYPE: XR wrist complete LT DATE OF EXAM: 12/03/2023 8:31 PM CLINICAL INDICATION:Female, 23 years old with history of injury; H COMPARISON: None. TECHNIQUE: 4 views of the left wrist. FINDINGS: Osseous mineralization appears appropriate. No destructive bony lesion. No acute fracture or dislocat ion. Joint spaces are maintained. Unremarkable soft tissues. No radiopaque foreign body is seen. IMPRESSION: No evidence of fracture or dislocation.
[2023-12-04 00:42] VITALS: BP 114/74; PULSE 82; RESP 18; TEMP 98
== END 2023-12-04 00:44 | disposition home or self-care (01) ==
LOC: EC 19:40
DX: S63.502A Unspecified sprain of left wrist, initial encounter (principal); Z88.5 Allergy status to narcotic agent; X58.XXXA Exposure to other specified factors, initial encounter
CPT/HCPCS: 29125; 99284